=== PATIENT | female | born 1955 | race Caucasian/White ===

== ENCOUNTER 2021-01-21 14:35 | Emergency (ER) | payer SELFPAY ==
--- NOTE | 2021-01-21 15:51 | EDM.PDOC ---
ED HPI GENERAL MEDICAL PROBLEM - General Stated Complaint: POSSIBLE BLOOD CLOT RIGHT LEG Time Seen by Provider: 01/21/21 14:45 Source of Information: Reports: Patient History Limitations: Reports: No Limitations - History of Present Illness INITIAL COMMENTS - FREE TEXT/NARRATIVE: Patient presented to the ED from the [facility] because of RLE pain which started 3-4 days ago. She has varicose veins on both leg and yesterday felt a knot on the right leg. There is no chest pain or dyspnea. Right Lower Leg Pain Score (Numeric/FACES): 3 - Related Data Allergies Allergy/AdvReac Type Severity Reaction Status Date / Time No Known Allergies Allergy Verified 01/21/21 15:44 Home Meds: Home Meds NK [No Known Home Meds] 01/21/21 [History] ED ROS GENERAL - Review of Systems Review Of Systems: See Below Constitutional: Reports: No Symptoms HEENT: Reports: No Symptoms Respiratory: Reports: No Symptoms Cardiovascular: Reports: No Symptoms Endocrine: Reports: No Symptoms GI/Abdominal: Reports: No Symptoms : Reports: No Symptoms Musculoskeletal: Reports: Leg Pain Skin: Reports: No Symptoms Neurological: Reports: No Symptoms Psychiatric: Reports: No Symptoms ED EXAM, GENERAL - Physical Exam Exam: See Below Exam Limited By: No Limitations General Appearance: Alert, No Apparent Distress Eye Exam: Bilateral Eye: PERRL Ears: Normal External Exam, Normal Canal Nose: Normal Inspection, Normal Mucosa, No Blood Throat/Mouth: Normal Inspection, Normal Lips, Normal Teeth, Normal Gums, Normal Oropharynx, Normal Voice Head: Atraumatic, Normocephalic Neck: Normal Inspection, Supple, Non-Tender, Full Range of Motion Respiratory/Chest: No Respiratory Distress, Lungs Clear, Normal Breath Sounds, No Accessory Muscle Use, Chest Non-Tender Cardiovascular: Normal Peripheral Pulses, Regular Rate, Rhythm, No Edema, No Gallop, No JVD, No Murmur GI/Abdominal: Normal Bowel Sounds, Soft, Non-Tender, No Organomegaly, No Distention, No Abnormal Bruit, No Mass Back Exam: Normal Inspection, Full Range of Motion Extremities: Normal Inspection, Normal Range of Motion, Other (palpable tender knot RLE-calf area) Course - Vital Signs Text/Narrative:: D-Dimer is elevated. there is no US availble today but tomorrow. For the time being i will cover her with Lovenox 100 mg SC x1 dose pending doppler US tomorrow at 9 am. Last Recorded V/S: Last Vital Signs Temp 36.2 C 01/21/21 14:40 Pulse 98 01/21/21 14:40 Resp 18 01/21/21 14:40 BP 155/98 H 01/21/21 14:40 Pulse Ox 96 01/21/21 14:40 - Orders/Labs/Meds Labs: Laboratory Tests 01/21/21 Range/Units 14:45 D-Dimer, Quantitative 3.67 H (0.0-0.59) mg/LFEU Meds: Medications Discontinued Medications Generic Name Dose Route Start Last Admin Trade Name Freq PRN Reason Stop Dose Admin Enoxaparin Sodium 100 mg 01/21/21 15:53 01/21/21 16:30 Enoxaparin 100 Mg/1 Ml Syringe SUBCUT 01/21/21 15:54 100 mg NOW STA Administration Departure - Departure Time of Disposition: 16:00 Disposition: Home, Self-Care 01 Condition: Good Clinical Impression: Elevated d-dimer, Leg pain - Discharge Information Instructions: D-Dimer Test Referrals: Christiana Mo MD [Primary Care Provider] - Forms: ED Department Discharge Additional Instructions: Please read discharge instructions on elevated D-dimer and leg pain Proceed to radiology department @ 9 am for an ultrasound. Arrived 15 minutes earlier for registration and other paper work. You need to have a primary doctor who can do the follow up of your ultrasound and just in case you end up having DVT(blood clot in your veins) somebody need to write prescriptions for you. Sepsis Event Note (ED) - Focused Exam Vital Signs: Vital Signs Temp Pulse Resp BP Pulse Ox 01/21/21 14:40 36.2 C 98 18 155/98 H 96
[2021-01-21] MEDS ORDERED: Enoxaparin 100 MG/1 ML Syringe SUBCUT STA (15:53)
== END 2021-01-21 16:38 | disposition home or self-care (01) ==
LOC: FB.ED 14:35
DX: M79.604 Pain in right leg (principal); R79.89 Other specified abnormal findings of blood chemistry
CPT/HCPCS: 36415; 85379; 96372; 99283; J1650

== ENCOUNTER 2024-04-05 16:58 | Emergency (ER) | payer MEDICARE ==
[2024-04-05] MEDS ORDERED: traMADol 50 MG Tab PO ONE (16:59)
[2024-04-05] MEDS: traMADol 50 MG Tab PO ONE (17:37)
[2024-04-05] MEDS: Ibuprofen 600 MG Tab PO ONE (17:37)
== END 2024-04-05 19:15 | disposition home or self-care (01) ==
LOC: FB.ED 16:58
DX: S42.211A Unspecified displaced fracture of surgical neck of right humerus, initial encounter for closed fracture (principal); E03.9 Hypothyroidism, unspecified; Z79.890 Hormone replacement therapy; W01.0XXA Fall on same level from slipping, tripping and stumbling without subsequent striking against object, initial encounter
CPT/HCPCS: 73030; 73562; 99283; A9270